=== PATIENT | female | born 1955 | race African-American/Black ===

== ENCOUNTER 2017-11-13 11:04 | Outpatient (CLI) | payer MEDICARE ==
--- NOTE | 2017-11-13 16:25 | Mammography Report ---
BILATERAL DIGITAL SCREENING MAMMOGRAM with CAD: 11/13/17 11:04:00 CLINICAL: Routine screening. COMPARISON:05/16/13 FINDINGS: The breasts are almost entirely fatty. A left asymmetry on the MLO view requires additional imaging.No architectural distortion or suspicious calcifications.The right breast is negative. IMPRESSION: Left asymmetry requiring further workup. BI-RADS CATEGORY: 0 -- Additional Imaging Evaluation Required RECOMMENDATION: Recall for left lateralmedial and spot magnification MLO views and left breast ultrasound if needed. ACR BI-RADS MAMMOGRAPHIC CODES: 0 = Needs additional imaging evaluation; 1 = Negative; 2 = Benign; 3 = Probably benign; 4 = Suspicious; 5 = Malignant; 6 = Known biopsy-proven malignancy COMMENT: 1. Dense breast tissue, i.e., adenosis, fibrocystic changes, etc., may obscure an underlying neoplasm. 2. Approximately 10% of cancers are not detected with mammography. 3. A negative mammography report should not delay biopsy if a clinically suspicious mass is present. COMMENT: Patient follow-up letters are generated via our [employer] application.
== END 2017-11-13 11:05 | disposition home or self-care (01) ==
LOC: SPVWC 11:04
DX: Z12.31 Encounter for screening mammogram for malignant neoplasm of breast (principal)
CPT/HCPCS: 77067

== ENCOUNTER 2018-06-21 08:53 | Outpatient (CLI) | payer MEDICARE ==
--- NOTE | 2018-06-21 09:34 | Mammography Report ---
Spot compression of focal density upper mid left breast: Findings: On spot compression view there is effacement noted of the density seen on previous mammogram left breast dated 11/13/17. No microcalcifications seen. Impression: Probably benign. Six-month followup left mammogram recommended. BI-RADS CATEGORY: 3 = Probably benign ACR BI-RADS MAMMOGRAPHIC CODES: 0 = Needs additional imaging evaluation; 1 = Negative; 2 = Benign; 3 = Probably benign; 4 = Suspicious; 5 = Malignant; 6 = Known biopsy-proven malignancy COMMENT: 1. Dense breast tissue, i.e., adenosis, fibrocystic changes, etc., may obscure an underlying neoplasm. 2. Approximately 10% of cancers are not detected with mammography. 3. A negative mammography report should not delay biopsy if a clinically suspicious mass is present.
== END 2018-06-21 08:54 | disposition home or self-care (01) ==
LOC: SPVWC 08:53
DX: N64.89 Other specified disorders of breast (principal)